=== PATIENT | male | born 1990 | race Caucasian/White ===

== ENCOUNTER 2023-11-28 08:35 | Outpatient (CLI) | payer BC, SELFPAY | END 2023-11-28 08:36 | disposition home or self-care (01) | LOC: AMB 12-13 02:07 | PROVIDERS: Visit Provider Student in an Organized Health Care Education/Training Program | DX: R41.82 Altered mental status, unspecified (principal); T50.904A Poisoning by unspecified drugs, medicaments and biological substances, undetermined, initial encounter | CPT/HCPCS: A0425; A0427 ==

== ENCOUNTER 2023-11-28 09:07 | Emergency (ER) | payer BC, SELFPAY ==
[2023-11-28] VITALS (10 sets, daily range): BP systolic 100–117; BP diastolic 70–80; PULSE 67–86; RESP 22; TEMP 36.2; O2SAT 93–98; BMI 25.8
--- NOTE | 2023-11-28 09:55 | ED_ITS ---
HPI - Overdose General Date Seen: 11/28/23 Chief Complaint: Overdose Stated Complaint: Overdose Time Seen by Provider: 11/28/23 09:12 Source: patient and EMS Mode of arrival: EMS Limitations: no limitations History of Present Illness HPI Narrative: Patient is a 33-year-old male presenting to the emergency department for an overdose. He was at the local [employer] getting breakfast when he went to the bathroom. Coworkers of his not in a bathroom door and the patient was on the ground passed out. They were able to make a mild and EMS was called. He did have a needle sticking on his butt. Admits to taking meth, Xanax, heroin. 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 Denies suicidal or homicidal thoughts . Is supposed to be on Suboxone but has not been taking it. Patient is tearful at this time is concerned he could lose his job. EMS states the patient was stable vital signs for them the entire time during transport and did not require Narcan. He has been easily arousable. Patient denies chest pain, shortness of breath, weakness, numbness, headache, vision changes, abdominal pain. Related Data Home Medications ?Medication ?Instructions ?Recorded ?Confirmed Suboxone PO 11/28/23 Allergies Allergy/AdvReac Type Severity Reaction Status Date / Time No Known Drug Allergies Allergy Verified 11/28/23 09:33 Review of Systems Status of ROS: Reports: 10 or more systems reviewed and unremarkable except as noted in History and below [facility] Social History Non-prescribed substance use: denies use Exam 2 Narrative: Exam Narrative: Const: Well-nourished, Well-developed, tearful Eyes: PERRL, no conjunctival injection, and symmetrical lids HENT: Atraumatic external nose and ears. Moist mucous membranes. No tenderness or injuries noted of head Neck: Symmetric, trachea midline, No thyromegaly. No midline spinal tenderness CVS: RRR, No murmurs or gallops. Peripheral pulses 2+ and equal in all extremities RESP: Unlabored respiratory effort. Clear to auscultation bilaterally. GI: Nontender/Nondistended, No rebound or guarding. MSK:Extremities w/o deformity, Normal Active ROM Skin: Warm, Dry. No rashes or lesions. Neuro: Normal Muscle tone, No focal neurological deficits. Psych: Awake, Alert, & Oriented x3. Appropriate mood and affect. Const: Vital Signs, click to edit/add: Vital Signs - 24 hr 11/28/23 09:21 11/28/23 09:38 11/28/23 10:00 Temperature 97.1 F L Pulse Rate 81 85 Pulse Rate [Pulse Oximeter] 86 Respiratory Rate 22 Blood Pressure Blood Pressure [Ri ght Upper Arm] 113/79 Pulse Oximetry 93 94 97 Oxygen Delivery Me thod Room Air 11/28/23 10:03 11/28/23 10:31 11/28/23 10:32 Temperature Pulse Rate 83 72 72 Pulse Rate [Pulse Oximeter] Respiratory Rate Blood Pressure 117/75 108/80 Blood Pressure [Ri ght Upper Arm] Pulse Oximetry 98 95 94 Oxygen Delivery Me thod 11/28/23 11:00 11/28/23 11:01 11/28/23 11:30 Temperature Pulse Rate 72 73 68 Pulse Rate [Pulse Oximeter] Respiratory Rate Blood Pressure 100/71 Blood Pressure [Ri ght Upper Arm] Pulse Oximetry 95 95 96 Oxygen Delivery Me thod Course Vital Signs Vital signs: Initial Vital Signs Temperature 97.1 F L 11/28/23 09:21 Temperature Source Temporal Artery Scan 11/28/23 09:21 Pulse Rate 86 11/28/23 09:21 Respiratory Rate 22 11/28/23 09:21 Blood Pressure 113/79 11/28/23 09:21 Blood Pressure Mean 90 11/28/23 09:21 Blood Pressure Position Sitting 11/28/23 09:21 Pulse Oximetry 93 11/28/23 09:21 Oxygen Delivery Method Room Air 11/28/23 09:21 Vital Signs Temperature 97.1 F L 11/28/23 09:21 Pulse Rate 86 11/28/23 09:21 Respiratory Rate 22 11/28/23 09:21 Blood Pressure 113/79 11/28/23 09:21 Pulse Oximetry 93 11/28/23 09:21 Oxygen Delivery Method Room Air 11/28/23 09:21 Temperature 97.1 F L 11/28/23 09:21 Pulse Rate 68 11/28/23 11:30 Respiratory Rate 22 11/28/23 09:21 Blood Pressure 100/71 11/28/23 11:01 Pulse Oximetry 96 11/28/23 11:30 Oxygen Delivery Method Room Air 11/28/23 09:21 MDM - Overdose MDM Narrative Medical decision making narrative: Patient is a 33-year-old male presenting to emergency department for a likely overdose. Is not having any neck or head pain and no signs of contusions at this time and I do not believe imaging is necessary. Urine drug screen was ordered. Patient is not suicidal or homicidal and I do not believe requires inpatient treatment. Will monitor the patient. After monitoring the patient for 2 hours his vital signs remained stable and he is feeling well. I believe he is safe for discharge and he is agreeable to this plan. He does not appear to be a threat to himself or others at this time Discharge Plan Discharge Clinical Impression: Drug overdose Qualifiers: Encounter type: initial encounter Injury intent: accidental or unintentional Qualified Code(s): T50.901A - Poisoning by unspecified drugs, medicaments and biological substances, accidental (unintentional), initial encounter Patient Disposition: Home, Self-Care Condition: Improved Instructions: Adult Overdose (ED) Additional Instructions: Is important you stop taking illegal street drugs and start taking your prescribed Suboxone again. Return to emergency department for new worsening symptoms Prescriptions: No Action Suboxone PO Stand Alone Forms: [employer] Info Instructions
--- NOTE | 2023-11-28 10:09 | ED.NURSE ---
continues to cry, emesis x 1
--- NOTE | 2023-11-28 12:28 | ED.NURSE ---
Patient very upset and crying in room. No anger, not a threat to himself or others. Nurse went in to inform patient of discarge information and hand back belongings. Patient signed belongings list and was questioning nurse what happened. Nurse informed patient of happenings. Patient was at [employer] with coworkers and went to bathroom. Coworkers knocked on bathroom door and patient did not answer. Found patient unconscious with needle in buttocks. Called EMS. Patient was alert at that time- brought to ED. We have been monitoring patient since. Patient continues to be sad and upset, but still calm, cooperative and appropriate with staff.
== END 2023-11-28 12:57 | disposition home or self-care (01) ==
PROVIDERS: Emergency Provider Student in an Organized Health Care Education/Training Program
DX: T43.651A Poisoning by methamphetamines accidental (unintentional), initial encounter (principal)
CPT/HCPCS: 80306; 99282; 99283